=== PATIENT | male | born 1935 | race Hispanic/Latino ===

== ENCOUNTER 2017-01-20 17:35 | Emergency (ER) | payer MEDICARE, BC ==
[2017-01-20 17:50] VITALS: BMI 26.3
[2017-01-20 17:54] VITALS: BP 149/77; PULSE 61; RESP 16; TEMP 98.3; O2SAT 97
--- NOTE | 2017-01-20 18:18 | ED PDOC ---
Arrival/HPI - General Chief Complaint: Trauma Time Seen by Provider: 01/20/17 18:00 Historian: Patient - History of Present Illness Narrative History of Present Illness (Text): 01/20/17 18:05 81yo present with complaint of lower back pain s/p trauma this afternoon. the son who was by the bedside states patient fell backward on 3stairs. Landed on his buttocks and hit his head against a table. Patient states he slipped while walking up the stairs. the son states he witnessed the fall. States pain started when he woke up later. Describes pain is crampy/sharp, worse with movement. Patient denies LOC, focal weakness, urinary/fecal incontinence, nausea , vomiting, any other complaint. Past Medical History - Provider Review Nursing Documentation Reviewed: Yes - Infectious Disease Hx of Infectious Diseases: None - Tetanus Immunization Tetanus Immunization: Unknown - Cardiac Hx Congestive Heart Failure: No Hx Hypertension: Yes Hx Internal Defibrillator: No Hx Mitral Valve Prolapse: No Hx Pacemaker: No Hx Peripheral Edema: No - Pulmonary Hx Asthma: No Hx Bronchitis: No Hx Chronic Obstructive Pulmonary Disease (COPD): No Hx Emphysema: No - Neurological Hx Alzheimer's Disease: Yes HX Cerebrovascular Accident: Yes Hx Dementia: Yes Hx Migraine: No Hx Parkinson's Disease: No Hx Seizures: No Hx Transient Ischemic Attacks (TIA): Yes - Renal Hx Renal Disorder: Yes Hx Dialysis: No Hx Kidney Stones: Yes Hx Neurogenic Bladder: No Hx Pyelonephritis: No Hx Renal Cancer: Yes - Endocrine/Metabolic Hx Hyperthyroidism: No Hx Hypothyroidism: Yes - Hematological/Oncological Hx Anemia: No Hx Cancer: Yes (prostate) Hx Hepatitis A: No Hx Hepatitis B: No Hx Hepatitis C: No - Integumentary Hx Dermatological Disorder: No Hx Basal Cell Carcinoma: No Hx Eczema: No Hx Melanoma: No Hx Psoriasis: No Hx Squamous Cell Carcinoma: No - Musculoskeletal/Rheumatological Hx Arthritis: Yes - Gastrointestinal Hx Gastroesophageal Reflux: Yes - Genitourinary/Gynecological Hx Genitourinary Disorders: No Hx Hematuria: No Hx Incontinence: No Hx Prostate Problems: No Hx Sexually Transmitted Diseases: No - Psychiatric Hx Depression: No Hx Emotional Abuse: No Hx Physical Abuse: No Hx Substance Use: No - Surgical History Hx Cardiac Catheterization: Yes Hx Coronary Stent: No Hx Open Heart Surgery: Yes Hx Orthopedic Surgery: Yes (left knee) - Anesthesia Hx Anesthesia: No Hx Anesthesia Reactions: No Hx Malignant Hyperthermia: No - Suicidal Assessment Feels Threatened In Home Enviroment: No Family/Social History - Physician Review Nursing Documentation Reviewed: Yes Family/Social History: Unknown Family HX Smoking Status: Never Smoked Hx Alcohol Use: No Hx Substance Use: No Hx Substance Use Treatment: No Allergies/Home Meds Allergies/Adverse Reactions: Allergies No Known Allergies Allergy (Verified 01/24/13 08:40) Home Medications: Home Meds Medication Instructions Recorded Confirmed Alprazolam [Xanax] 0.25 mg PO DAILY 01/24/13 01/24/13 Amlodipine Besylate 5 mg PO DAILY 01/24/13 01/24/13 Aspirin [Ecotrin] 325 mg PO DAILY 01/24/13 01/24/13 Atorvastatin Calcium 40 mg PO DAILY 01/24/13 01/24/13 Donepezil Hydrochloride [Aricept] 10 mg PO DAILY 01/24/13 01/24/13 Levothyroxine [Synthroid] 0.075 mg PO DAILY 01/24/13 01/24/13 Meclizine Hydrochloride [Meclizine] 25 mg PO BID 01/24/13 01/24/13 Metoprolol Tartrate 50 mg PO BID 01/24/13 01/24/13 Multivitamin and [id number] 1 tab PO DAILY 01/24/13 01/24/13 [Centrum Silver] Review of Systems - Physician Review All systems were reviewed & negative as marked: Yes - Review of Systems Constitutional: Normal Eyes: Normal ENT: Normal Respiratory: Normal Cardiovascular: Normal Gastrointestinal: Normal Genitourinary Male: Normal Musculoskeletal: Back Pain Skin: Normal Neurological: Normal Endocrine: Normal Hemo/Lymphatic: Normal Psychiatric: Normal Physical Exam Vital Signs Reviewed: Yes Vital Signs Temp Pulse Resp BP Pulse Ox 01/20/17 17:50 98.3 F 61 16 149/77 97 Temperature: Afebrile Blood Pressure: Normal Pulse: Regular Respiratory Rate: Normal Appearance: Positive for: Well-Appearing, Non-Toxic, Comfortable Pain Distress: None Mental Status: Positive for: Alert and Oriented X 3 - Systems Exam Head: Present: Atraumatic, Normocephalic Pupils: Present: PERRL Extroacular Muscles: Present: EOMI Conjunctiva: Present: Normal Mouth: Present: Moist Mucous Membranes Neck: Present: Normal Range of Motion Respiratory/Chest: Present: Clear to Auscultation, Good Air Exchange. No: Respiratory Distress, Accessory Muscle Use Cardiovascular: Present: Regular Rate and Rhythm, Normal S1, S2. No: Murmurs Abdomen: Present: Normal Bowel Sounds. No: Tenderness, Distention, Peritoneal Signs Back: Present: Midline Tenderness, Paraspinal Tenderness (Diffuse lower lumbar tenderness). No: Pain with Leg Raise Upper Extremity: Present: Normal Inspection. No: Cyanosis, Edema Lower Extremity: Present: Normal Inspection. No: Edema Neurological: Present: GCS=15, CN II-XII Intact, Speech Normal, Motor Func Grossly Intact, Normal Sensory Function, Normal 2Pt Descrimination, Other (No focal neurological deficit) Skin: Present: Warm, Dry, Normal Color. No: Rashes Psychiatric: Present: Alert, Oriented x 3, Normal Insight, Normal Concentration Medical Decision Making ED Course and Treatment: 01/20/17 20:38 Pt present in ED for stated history. He was comfortable in ED. AAO x3. Neurologically intact. He was able to machine ironer ED. The son that he usually ambualte with a walker but don't have it with him. Head Ct - No acute finding LS CT _ L1 compression fracture suspected to be acute. Multilevel degenerative changes as above including spinal stenosis at L4-5 and L5-S1. Enlarged appendix with a curvilinear band of calcification in the wall. There are no surrounding inflammatory changes and calcification of the wall with seen to make appendicitis unlikely although it is not entirely excluded. Colonic diverticulosis with no acute diverticulitis.. Kidney cysts. Result was DW with both patient and the family members. Patient states his pain is manageable and prefer to go home. He was given Percocet in ED. Case was JEFERSON Wang who works with Dr. Orozco. She states patient should call the office tomorrow. PT was given percocet rx. Advised to call Dr. Chau tomorrow and referred to ortho. TRT ED for any new or worsening symptoms. - RAD Interpretation Radiology Orders: 01/20/17 18:00 HEAD W/O CONTRAST [CT] Stat LUMBAR SPINE W/O CONTRAST [CT] Stat - Medication Orders Current Medication Orders: Discontinued Medications Oxycodone/Acetaminophen (Percocet 5/325 Mg Tab) 1 tab PO STAT STA Stop: 01/20/17 20:23 Last Admin: 04/20/17 20:31 Dose: 1 TAB Disposition/Present on Arrival - Present on Arrival Any Indicators Present on Arrival: No History of DVT/PE: No History of Uncontrolled Diabetes: No Urinary Catheter: No History of Decub. Ulcer: No History Surgical Site Infection Following: None - Disposition Have Diagnosis and Disposition been Completed?: Yes Diagnosis: Compression fracture Disposition: HOME/ ROUTINE Disposition Time: 20:30 Patient Plan: Discharge Patient Problems: Current Active Problems Problem Status Diagnosed Compression fracture Acute Condition: STABLE Discharge Instructions (ExitCare): Thoracolumbar Fracture (ED) Additional Instructions: Follow up with your Doctor/[place] Return to ED for any new or worsening symptoms Prescriptions: oxyCODONE/Acetaminophen [Percocet 5/325 mg Tab] 1 ea PO Q6 #10 tab Referrals: Samuel Chau MD [Primary Care Provider] - Follow up with primary Jorge Whelan DO [Staff Provider] - Follow up with primary
[2017-01-20] MEDS ORDERED: Oxycodone/Acetaminophen 5/325 mg Tab PO STA (20:22)
--- NOTE | 2017-01-21 07:31 | CT ---
PROCEDURE: CT HEAD WITHOUT CONTRAST. HISTORY: head injury COMPARISON: Noncontrast head CT performed 01/27/13, MRI brain without IV contrast performed 10/21/16 TECHNIQUE: Axial computed tomography images were obtained through the head/brain without intravenous contrast. Radiation dose: Total exam DLP = 774.23 mGy-cm. This CT exam was performed using one or more of the following dose reduction techniques: Automated exposure control, adjustment of the mA and/or kV according to patient size, and/or use of iterative reconstruction technique. FINDINGS: HEMORRHAGE: No intracranial hemorrhage. BRAIN: Diffuse atrophy with prominence of the ventricles and sulci noted. No mass effect or edema. Intracranial atherosclerotic calcifications. Scattered regions of chronic appearing infarcts and lacunes involving the posterior frontal region, bilateral basal ganglia, and left frontal white matter. Scattered periventricular and subcortical white matter hypodensities, which are nonspecific, but often seen with chronic microvascular ischemic disease. Please note that MRI with diffusion imaging is more sensitive in the detection of acute ischemic event. VENTRICLES: No hydrocephalus. CALVARIUM: Unremarkable. PARANASAL SINUSES: Mucosal polyp/ retention cyst within the left maxillary sinus. Mild mucosal thickening of the ethmoid air cells. MASTOID AIR CELLS: Unremarkable as visualized. No inflammatory changes. OTHER FINDINGS: Partial opacification of the right external auditory canal, likely cerumen. IMPRESSION: Scattered regions of chronic appearing infarcts and lacunes as above. Please note that MRI with diffusion imaging is more sensitive in the detection of acute ischemic event. Additional incidental findings as above. Preliminary impression was provided by virtual radiologic.
--- NOTE | 2017-01-21 11:02 | CT ---
PROCEDURE: CT Lumbar Spine without contrast HISTORY: back pain s/p trauma COMPARISON: MRI of the lumbar spine 09/27/2014 TECHNIQUE: Axial computed tomography images were obtained of the lumbar spine without the use of intravenous contrast. Coronal and sagittal reformatted images were created and reviewed. Radiation dose: Total exam DLP = 979 mGy-cm. This CT exam was performed using one or more of the following dose reduction techniques: Automated exposure control, adjustment of the mA and/or kV according to patient size, and/or use of iterative reconstruction technique. FINDINGS: VERTEBRAE: There is a moderate compression fracture of L1. This is unchanged DISCS/SPINAL CANAL/NEURAL FORAMINA: L1-2: Unremarkable. L2-3: There is severe disc degeneration with loss of disc height and disc bulging L3-4: Mild to moderate disc bulge L4-5: There is severe disc degeneration with loss of disc height, vacuum disc and moderate disc bulge. This produces a moderate degree of central canal stenosis. L5-S1: There is severe disc degeneration with loss of disc height, vacuum disc and disc bulge. Osteophyte formation. Facet arthropathy. Severe central stenosis PARASPINAL SOFT TISSUES: Unremarkable. OTHER FINDINGS: None. IMPRESSION: Multilevel disc degeneration with spinal stenosis at L4-5 and L5-S1
== END 2017-01-20 20:40 | disposition home or self-care (01) ==
LOC: ED 17:35
DX: S32.019A Unspecified fracture of first lumbar vertebra, initial encounter for closed fracture (principal); W10.8XXA Fall (on) (from) other stairs and steps, initial encounter; Y92.008 Other place in unspecified non-institutional (private) residence as the place of occurrence of the external cause

== ENCOUNTER 2018-06-12 19:24 | Inpatient (IN) | payer MEDICARE, BC ==
[2018-06-12 20:04] VITALS: BMI 20.8
[2018-06-12 20:14] LABS: HEMOGLOBIN 11.6 g/dL (14.0-18.0); MEAN CELL VOLUME 94.4 fl (80.0-105.0); MEAN CORPUSCULAR HEMOGLOBIN 32.4 pg (25.0-35.0); MEAN CORPUSCULAR HGB CONC 34.3 g/dl (31.0-37.0); MEAN PLATELET VOLUME 9.5 fl (7.0-11.0); RBC 3.58 10^6/uL (3.5-6.1); RED CELL DISTRIBUTION WIDTH 12.6 % (11.5-14.5); WHITE BLOOD COUNT 4.8 10^3/ul (4.5-11.0)
[2018-06-12 20:21] LABS: ALB/GLOB RATIO 1.6 (1.1-1.8); ALBUMIN 4.5 g/dL (3.0-4.8); ALT/SGPT 49 U/L (7-56); AST/SGOT 47 U/L (17-59); BLOOD UREA NITROGEN 37 mg/dL (7-21); CALCIUM 9.8 mg/dL (8.4-10.5); GFR NON-AFRICAN AMERICAN 44
[2018-06-12 20:22] LABS: INR 0.98; PARTIAL THROMBOPLASTIN TIME 20.9 Seconds (25.1-36.5); PROTHROMBIN TIME 11.2 SECONDS (9.4-12.5)
[2018-06-12 20:32] LABS: TROPONIN I < 0.01 ng/mL
--- NOTE | 2018-06-12 20:49 | ED PDOC ---
Arrival/HPI - General Chief Complaint: Trauma Time Seen by Provider: 06/12/18 19:34 Historian: Patient, Family (son) - History of Present Illness Narrative History of Present Illness (Text): 06/12/18 19:42 A 83 year old male, whose past medical history includes dementia, TIA, CVA, who is accompanied by his son, presents to the emergency department complaining of periods of increased confusion. Per son, patient today seemed to be also weak at times while using his walker. At some point during today, patient fell onto walker, however did not land on the ground. Patient had to be assisted afterwards according to son. Patient denies chest pain, shortness of breath, fever, chills, headache, abdominal pain, nausea, vomiting, diarrhea, or any other complaints at this time. PMD: Dr. Chau Past Medical History - Provider Review Nursing Documentation Reviewed: Yes - Infectious Disease Hx of Infectious Diseases: None - Tetanus Immunization Tetanus Immunization: Unknown - Cardiac Hx Congestive Heart Failure: No Hx Hypertension: Yes Hx Internal Defibrillator: No Hx Mitral Valve Prolapse: No Hx Pacemaker: No Hx Peripheral Edema: No - Pulmonary Hx Asthma: No Hx Bronchitis: No Hx Chronic Obstructive Pulmonary Disease (COPD): No Hx Emphysema: No - Neurological Hx Alzheimer's Disease: Yes HX Cerebrovascular Accident: Yes Hx Dementia: Yes Hx Migraine: No Hx Parkinson's Disease: No Hx Seizures: No Hx Transient Ischemic Attacks (TIA): Yes - Renal Hx Renal Disorder: Yes Hx Dialysis: No Hx Kidney Stones: Yes Hx Neurogenic Bladder: No Hx Pyelonephritis: No Hx Renal Cancer: Yes - Endocrine/Metabolic Hx Hyperthyroidism: No Hx Hypothyroidism: Yes - Hematological/Oncological Hx Anemia: No Hx Cancer: Yes (prostate) Hx Hepatitis A: No Hx Hepatitis B: No Hx Hepatitis C: No - Integumentary Hx Dermatological Disorder: No Hx Basal Cell Carcinoma: No Hx Eczema: No Hx Melanoma: No Hx Psoriasis: No Hx Squamous Cell Carcinoma: No - Musculoskeletal/Rheumatological Hx Arthritis: Yes - Gastrointestinal Hx Gastroesophageal Reflux: Yes - Genitourinary/Gynecological Hx Genitourinary Disorders: No Hx Hematuria: No Hx Incontinence: No Hx Prostate Problems: No Hx Sexually Transmitted Diseases: No - Psychiatric Hx Depression: No Hx Emotional Abuse: No Hx Physical Abuse: No Hx Substance Use: No - Surgical History Hx Cardiac Catheterization: Yes Hx Coronary Stent: No Hx Open Heart Surgery: Yes Hx Orthopedic Surgery: Yes (left knee) - Anesthesia Hx Anesthesia: No Hx Anesthesia Reactions: No Hx Malignant Hyperthermia: No - Suicidal Assessment Feels Threatened In Home Enviroment: No Family/Social History - Physician Review Nursing Documentation Reviewed: Yes Family/Social History: No Known Family HX Smoking Status: Never Smoked Hx Alcohol Use: No Hx Substance Use: No Hx Substance Use Treatment: No Allergies/Home Meds Allergies/Adverse Reactions: Allergies No Known Allergies Allergy (Verified 01/24/13 08:40) Home Medications: Home Meds Medication Instructions Recorded Confirmed Amlodipine Besylate 10 mg PO DAILY 01/24/13 06/12/18 Atorvastatin Calcium 40 mg PO DAILY 01/24/13 06/12/18 Levothyroxine [Synthroid] 0.075 mg PO DAILY 01/24/13 06/12/18 Metoprolol Tartrate 50 mg PO BID 01/24/13 06/12/18 Multivitamin and [id number] 1 tab PO DAILY 01/24/13 06/12/18 [Centrum Silver] Clopidogrel Bisulfate [Clopidogrel 75 mg PO DAILY 06/12/18 06/12/18 Bisulfate] Escitalopram [Lexapro] 5 mg PO DAILY 06/12/18 06/12/18 Magnesium Oxide [Pharmassure 500 mg PO DAILY 06/12/18 06/12/18 Magnesium] Pantoprazole Sodium [Protonix] 40 mg PO DAILY 06/12/18 06/12/18 Tamsulosin HCl [Flomax] 0.4 mg PO HS 06/12/18 06/12/18 Review of Systems - Physician Review All systems were reviewed & negative as marked: Yes - Review of Systems Constitutional: absent: Fevers, Night Sweats Respiratory: absent: SOB Cardiovascular: absent: Chest Pain Gastrointestinal: absent: Abdominal Pain, Diarrhea, Nausea, Vomiting Neurological: absent: Headache Psychiatric: Other (periods of increased confusion.) Physical Exam Vital Signs Reviewed: Yes Vital Signs Pulse Resp BP Pulse Ox 06/12/18 23:21 52 L 18 124/63 100 06/12/18 20:08 50 L 18 128/64 98 06/12/18 20:04 50 L 18 128/64 99 Blood Pressure: Normal Pulse: Bradycardic Respiratory Rate: Normal Appearance: Positive for: Well-Appearing, Non-Toxic, Comfortable Pain Distress: None Mental Status: No: Alert and Oriented X 3 (alert and oriented x 2 (person and place only)) - Systems Exam Head: Present: Atraumatic, Normocephalic Pupils: Present: PERRL Extroacular Muscles: Present: EOMI Conjunctiva: Present: Normal Ears: Present: NORMAL TM (bilaterally intact) Mouth: Present: Moist Mucous Membranes Neck: Present: Normal Range of Motion (neck is supple). No: Other (no dorsal tenderness) Respiratory/Chest: Present: Clear to Auscultation, Good Air Exchange. No: Respiratory Distress, Accessory Muscle Use Cardiovascular: Present: Bradycardic Abdomen: Present: Normal Bowel Sounds. No: Tenderness, Distention, Peritoneal Signs Back: Present: Normal Inspection Upper Extremity: Present: Normal Inspection. No: Cyanosis, Edema Lower Extremity: Present: Normal Inspection. No: Edema Neurological: Present: GCS=15, CN II-XII Intact, Speech Normal. No: Other (no focal/sensory/motor deficits.) Skin: Present: Warm, Dry, Normal Color. No: Rashes Psychiatric: Present: Alert, Oriented x 3, Normal Insight, Normal Concentration Medical Decision Making ED Course and Treatment: 06/12/18 19:46 Impression: 83 year old male with periods of increased confusion. Plan: -- EKG -- Head CT -- Chest X-ray -- Labs -- Reassess and disposition Progress Notes: EKG: Ordered, reviewed, and independently interpreted the EKG. Rate : 53 BPM Rhythm : Bradycardia. Interpretation : No ST-segment elevations or depressions, no T-wave inversions, normal intervals. Comparison : No previous EKG for comparison. 06/12/18 22:55 Reviewed radiology, Chest X-ray reviewed shows no acute processes. CT Head shows: Brain: Scattered low density areas in the periventricular white matter and basal ganglia probably reflect chronic small vessel ischemic changes. Vascular calcifications are present. There is no intracranial hemorrhage or mass. No abnormal extra-axial or parenchymal fluid collections. Posterior fossa is unremarkable. Ventricles: The ventricles and basilar cisterns are prominant likely related to chronic volume loss. Bones/joints: Normal. No acute fracture. Sinuses: Mucous retention cyst present in the left maxillary sinus.There is cerebral and cerebellar cortical volume loss compatible with the patient's age. Mild mucosal thickening in the ethmoid sinuses present. Mastoid air cells: Normal as visualized. No mastoid effusion. Soft tissues: Normal. IMPRESSION: There are low-attenuation areas in the periventricular white matter and basal ganglia, probably reflecting chronic ischemic changes. However, if there is clinical concern for an acute infarction, followup MRI could be useful. Dictated and Authenticated by: Unique Smith MD 06/12/2018 10:53 PM Eastern Time ([place] & [place]) 06/12/18 23:51 Case discussed with front office medical assistant electronics engineering technologist, who is aware and agrees with plan. 06/12/18 23:[address] Dowd, who is aware and agrees with plan. Accepts pt in to hospitalist service. Pt will go to Telemetry observation for AMS and near- syncope. - Lab Interpretations Lab Results: 06/12/18 20:03 06/12/18 20:03 Lab Results 06/12/18 20:03: WBC 4.8, RBC 3.58, Hgb 11.6 L, Hct 33.8 L, MCV 94.4, MCH 32.4, MCHC 34.3, RDW 12.6, Plt Count 117 L, MPV 9.5 06/12/18 20:03: Sodium 140, Potassium 4.6, Chloride 103, Carbon Dioxide 27, Anion Gap 16, BUN 37 H, Creatinine 1.5, Est GFR ( Amer) 54, Est GFR (Non- Af Amer) 44, Random Glucose 134 H, Calcium 9.8, Total Bilirubin 0.9, AST 47, ALT 49, Alkaline Phosphatase 79, Lactate Dehydrogenase 535, Total Creatine Kinase 49, Troponin I < 0.01, Total Protein 7.2, Albumin 4.5, Globulin 2.7, Albumin/Globulin Ratio 1.6 06/12/18 20:03: PT 11.2, INR 0.98, APTT 20.9 L - RAD Interpretation Radiology Orders: 06/12/18 19:46 HEAD W/O CONTRAST [CT] Stat CHEST PORTABLE [RAD] Stat - Scribe Statement The provider has reviewed the documentation as recorded by the Cornell Huff Provider Scribe Provider Scribe Attestation: All medical record entries made by the Scribe were at my direction and personally dictated by me. I have reviewed the chart and agree that the record accurately reflects my personal performance of the history, physical exam, medical decision making, and the department course for this patient. I have also personally directed, reviewed, and agree with the discharge instructions and disposition. Disposition/Present on Arrival - Present on Arrival Any Indicators Present on Arrival: No History of DVT/PE: No History of Uncontrolled Diabetes: No Urinary Catheter: No History of Decub. Ulcer: No History Surgical Site Infection Following: None - Disposition Have Diagnosis and Disposition been Completed?: Yes Diagnosis: Altered mental status, Near syncope Disposition: HOSPITALIZED Disposition Time: 00:04 Condition: STABLE Referrals: Samuel Chau MD [Primary Care Provider] - Follow up with primary Forms: [email or web address] (L[place]anese)
--- NOTE | 2018-06-13 02:36 | CP.PCM.HP ---
<Gavin Gold - Last Filed: 06/13/18 05:40> History of Present Illness - History of Present Illness History of Present Illness: Gavin Gold DO PGY-1, H&P for Hospitalist This is an 83 year old male with PMH of alzheimer's dementia, TIA, CVA who presents to the ED with complaints of period of increased confusion since the night of 06/12/18, and fall. Pt is a poor historian, and history is mostly obtained from pt's nephew who is at bedside. Nephew reports that the patient has had worsening dementia for the past few months, but states that he looked disoriented today and had trouble taking his medications today. Pt was pacing around the house, and eventually took his medication (nightly dose of Metoprolol 50 mg PO), and subsequently fell forward while using his walker but did not hit the ground. As per pt and nephew, pt did not lose consciousnes. Nephew states that pt is in charge of his medications and frequently takes them incorrectly. Denies fever, chills, cough abdominal pain, n/v/d. In the ED, Head CT was done which showed chronic ischemic changes. EKG in the ED shows junctional rhythm at 53, no sttw changes, as read by me. Pt endorses waking up to urinate 3-4 times per night, denies dysuria. Pt seen and examined at bedside. Pt is pleasantly demented, and is only oriented to self. Has no complaints at this time PMD: [place] Cardio: Krupa POA: pt's neice PMHx: Nephew only endorses dementia, cva, tia. Records reviewed: hypertension, hypothyroidism. Exam shows sterniotomy scars and CXR shows sterniotomy wires in place. PSHx: denies Meds: magnesium oxide 500 mg PO QD, protonix 40 mg PO QD, plavix 75 mg PO QD, flomax 04 mg PO HS, Lexapro 5 mg PO QD, multivitamin, Metoprolol 50 mg PO BID, Atorvastatin 40 mg PO QD, Amlodopine 10 mg PO QD, Levothyroxine 75 mcg PO QD Allx:NKDA Social history: denies smoking, alcohol use. Lives with brother in law and nephew Present on Admission - Present on Admission Any Indicators Present on Admission: No Review of Systems - Review of Systems All systems: reviewed and no additional remarkable complaints except (as per HPI ) Past Patient History - Infectious Disease Hx of Infectious Diseases: None - Tetanus Immunizations Tetanus Immunization: Unknown - Past Social History Smoking Status: Never Smoked - CARDIAC Hx Congestive Heart Failure: No Hx Hypertension: Yes Hx Internal Defibrillator: No Hx Mitral Valve Prolapse: No Hx Pacemaker: No Hx Peripheral Edema: No - PULMONARY Hx Asthma: No Hx Bronchitis: No Hx Chronic Obstructive Pulmonary Disease (COPD): No Hx Emphysema: No - NEUROLOGICAL Hx Alzheimer's Disease: Yes HX Cerebrovascular Accident: Yes Hx Dementia: Yes Hx Migraine: No Hx Parkinson's Disease: No Hx Seizures: No Hx Transient Ischemic Attacks (TIA): Yes - RENAL Hx Chronic Kidney Disease: Yes Hx Dialysis: No Hx Kidney Stones: Yes Hx Neurogenic Bladder: No Hx Pyelonephritis: No Hx Renal (Kidney) Cancer: Yes - ENDOCRINE/METABOLIC Hx Hyperthyroidism: No Hx Hypothyroidism: Yes - HEMATOLOGICAL/ONCOLOGICAL Hx Anemia: No Hx Cancer: Yes (prostate) Hx Hepatitis A: No Hx Hepatitis B: No Hx Hepatitis C: No - INTEGUMENTARY Hx Dermatological Problems: No Hx Basil Cell: No Hx Eczema: No Hx Melanoma: No Hx Psoriasis: No Hx Squamous Cell: No - MUSCULOSKELETAL/RHEUMATOLOGICAL Hx Arthritis: Yes - GASTROINTESTINAL Hx Gastroesophageal Reflux: Yes - GENITOURINARY/GYNECOLOGICAL Hx Genitourinary Disorders: No Hx Hematuria: No Hx Incontinence: No Hx Prostate Problems: No Hx Sexually Transmitted Disorders: No - PSYCHIATRIC Hx Depression: No Hx Emotional Abuse: No Hx Physical Abuse: No Hx Substance Use: No - SURGICAL HISTORY Hx Cardiac Catheterization: Yes Hx Coronary Stent: No Hx Open Heart Surgery: Yes Hx Orthopedic Surgery: Yes (left knee) - ANESTHESIA Hx Anesthesia: No Hx Anesthesia Reactions: No Hx Malignant Hyperthermia: No Meds Allergies/Adverse Reactions: Allergies Allergy/AdvReac Type Severity Reaction Status Date / Time No Known Allergies Allergy Verified 01/24/13 08:40 Physical Exam - Constitutional Appears: No Acute Distress, Confused (pleasantly demented) - Eye Exam Eye Exam: EOMI Pupil Exam: PERRL - ENT Exam ENT Exam: Mucous Membranes Moist - Neck Exam Neck exam: Positive for: Normal Inspection - Respiratory Exam Respiratory Exam: Clear to Auscultation Bilateral, NORMAL BREATHING PATTERN - Cardiovascular Exam Cardiovascular Exam: REGULAR RHYTHM, +S1, +S2 Additional comments: (-) carotid bruit, (+) large midline vertical sterniotomy scar - GI/Abdominal Exam GI & Abdominal Exam: Normal Bowel Sounds, Soft. absent: Tenderness - Extremities Exam Extremities exam: Positive for: normal inspection, pedal pulses present. Negative for: pedal edema - Back Exam Back exam: NORMAL INSPECTION - Neurological Exam Neurological exam: Alert (only oriented to self), CN II-XII Intact Additional comments: (+) 5/5 strength in bilateral upper and lower extremities - Psychiatric Exam Psychiatric exam: Normal Affect - Skin Skin Exam: Normal Color, Warm Results - Vital Signs Recent Vital Signs: Last Vital Signs Temp Pulse 52 L 06/12/18 23:21 Resp 18 06/12/18 23:21 BP 124/63 06/12/18 23:21 Pulse Ox 100 06/12/18 23:21 - Labs Result Diagrams: 06/13/18 05:15 06/12/18 20:03 Assessment & Plan - Assessment and Plan (Free Text) Assessment: This is an 83 year old male with PMH of alzheimer's dementia, TIA, CVA who presents to the ED with complaints of period of increased confusion since the night of 06/12/18, and fall. Pt is a poor historian, and history is mostly obtained from pt's nephew who is at bedside. Nephew reports that the patient has had worsening dementia for the past few months, but states that he looked disoriented today and had trouble taking his medications today. Pt was pacing around the house, and eventually took his medication (nightly dose of Metoprolol 50 mg PO), and subsequently fell forward while using his walker. Pt did not lose consciousnes or hit his head. In the ED, Head CT was done which showed chronic ischemic changes. EKG in the ED shows junctional rhythm at 53, no sttw changes, as read by me. Pt will be admitted to telemetry for observation. Plan: 1. AMS, secondary to polypharmacy and incorrect medication due to advancing alzheimer's dementia - currently no focal deficits - Head CT: There are low-attenuation areas in the periventricular white matter and basal ganglia, probably reflecting chronic ischemic changes. However, if there is clinical concern for an acute infarction, followup MRI could be useful. - EKG shows junctional rhythm at 52, no STTW changes; as read by me - hold metoprolol - high fall risk, fall precautions - f/u UA and urine culture; no antibiotics at this time due to no signs of clear infection or SIRS criteria, no fever or tachycardia - cardiology consulted recs appreciated - clinical social work aide consulted 2. History of CVA - holding plavix due to high fall risk - contact pharmacy to confirm medication and restart appropriately - continue home atorvastatin 3. hypertension - BP has been 120s/60s in the ED - continue home amlodipine 4. Hyperlipidemia - continue home lipitor - f/u lipid panel 5. hypothyroidism - continue home synthroid - TSH is 1.04, f/u T4 6. depression - continue home escitalopram 7. PPX/Diet - Protonix 40 mg PO QD, SCDs - HHD Case discussed and reviewed with attending physician, Dr. Dowd <Craig Dowd - Last Filed: 06/13/18 06:47> Results - Vital Signs Recent Vital Signs: Last Vital Signs Temp Pulse 58 L 06/13/18 06:32 Resp 18 06/13/18 06:32 BP 136/65 06/13/18 06:32 Pulse Ox 100 06/13/18 06:32 - Labs Result Diagrams: 06/13/18 05:15 06/12/18 20:03 Labs: Laboratory Results - last 24 hr 06/13/18 06/13/18 02:05 05:15 WBC 6.5 D RBC 3.69 Hgb 11.9 L Hct 34.4 L MCV 93.2 MCH 32.2 MCHC 34.6 RDW 12.6 Plt Count 128 MPV 9.8 Urine Color Yellow Urine Appearance Clear Urine pH 8.0 Ur Specific Carney 1.015 Urine Protein Trace H Urine Glucose (UA) Negative Urine Ketones 15 H Urine Blood Negative Urine Nitrate Negative Urine Bilirubin Negative Urine Urobilinogen 0.2 Ur Leukocyte Esterase Negative Urine RBC 0 - 2 Urine WBC 0 - 2 Ur Epithelial Cells 0 - 2 Hyaline Casts 0 - 2 Attending/Attestation - Attestation I have personally seen and examined this patient.: Yes I have fully participated in the care of the patient.: Yes I have reviewed all pertinent clinical information: Yes Notes (Text): Pt seen and examined independently. Junctional arrhythmia, ? secondary to medication side effect. AMS most likely due to worsening dementia, but will need to r/o infectious etiology. send UA. Will hold BB for now, get cardio consult. SW consult. 06/13/18 06:41
[2018-06-13 03:39] LABS: URINE BILIRUBIN NEGATIVE (NEGATIVE); URINE BLOOD NEGATIVE (NEGATIVE); URINE GLUCOSE (UA) NEGATIVE (NEGATIVE); URINE LEUKOCYTE ESTERASE NEGATIVE Leu/uL (NEGATIVE); URINE PROTEIN TRACE mg/dL (<30 mg/dL); URINE UROBILINOGEN 0.2 E.U./dL (<1 E.U./dL)
[2018-06-13 03:40] LABS: URINE APPEARANCE CLEAR (CLEAR); URINE COLOR YELLOW (YELLOW)
[2018-06-13 03:45] LABS: URINE EPITHELIAL CELLS 0 - 2 /hpf (0-5); URINE HYALINE CAST 0 - 2 /hpf; URINE RBC 0 - 2 /hpf (0-2); URINE WBC 0 - 2 /hpf (0-6)
[2018-06-13 05:37] LABS: HEMOGLOBIN 11.9 g/dL (14.0-18.0); MEAN CELL VOLUME 93.2 fl (80.0-105.0); MEAN CORPUSCULAR HEMOGLOBIN 32.2 pg (25.0-35.0); MEAN CORPUSCULAR HGB CONC 34.6 g/dl (31.0-37.0); MEAN PLATELET VOLUME 9.8 fl (7.0-11.0); RBC 3.69 10^6/uL (3.5-6.1); RED CELL DISTRIBUTION WIDTH 12.6 % (11.5-14.5); WHITE BLOOD COUNT 6.5 10^3/ul (4.5-11.0)
[2018-06-13 07:10] LABS: CALCIUM 10.2 mg/dL (8.4-10.5)
[2018-06-13 07:39] LABS: HDL CHOLESTEROL 47 mg/dL (29-60)
[2018-06-13 07:49] LABS: LDL CHOLESTEROL 53 mg/dL (0-129)
--- NOTE | 2018-06-13 08:22 | CT ---
Date of service: 06/12/2018 PROCEDURE: CT HEAD WITHOUT CONTRAST. HISTORY: confused/weak COMPARISON: None available. TECHNIQUE: Axial computed tomography images were obtained through the head/brain without intravenous contrast. Radiation dose: Total exam DLP = 847 mGy-cm. This CT exam was performed using one or more of the following dose reduction techniques: Automated exposure control, adjustment of the mA and/or kV according to patient size, and/or use of iterative reconstruction technique. FINDINGS: HEMORRHAGE: No intracranial hemorrhage. BRAIN: No mass effect or edema. Severe chronic microvascular changes are seen in the periventricular white matter and basal ganglia. There is moderate atrophy VENTRICLES: Unremarkable. No hydrocephalus. CALVARIUM: Unremarkable. PARANASAL SINUSES: Unremarkable as visualized. No significant inflammatory changes. MASTOID AIR CELLS: Unremarkable as visualized. No inflammatory changes. OTHER FINDINGS: The report concurs with the preliminary [facility] report IMPRESSION: No acute findings
--- NOTE | 2018-06-13 08:34 | RAD ---
Date of service: 06/12/2018 HISTORY: confused COMPARISON: 01/24/2013 FINDINGS: LUNGS: No active pulmonary disease. PLEURA: No significant pleural effusion identified, no pneumothorax apparent. CARDIOVASCULAR: Mild cardiomegaly OSSEOUS STRUCTURES: Sternal wires VISUALIZED UPPER ABDOMEN: Normal. OTHER FINDINGS: None. IMPRESSION: No active disease.
--- NOTE | 2018-06-13 10:36 | CARD ---
APPROVED REPORT Date of service: 06/12/2018 EKG Measurement Heart [id number] <Conclusion> Junctional rhythm ST & T wave abnormality, consider anterior ischemia Prolonged QT Abnormal ECG
[2018-06-13] MEDS: Pantoprazole 40 mg EC Tab PO SCH (11:19)
[2018-06-13] MEDS: Levothyroxine 75 MCG TAB PO SCH (11:28)
[2018-06-13] MEDS ORDERED: Pneumococcal 23-Valent Vaccine IM ONE (14:38)
--- NOTE | 2018-06-14 01:02 | CON ---
DATE: 06/13/2018 REQUESTING PHYSICIAN: Dr. James. REASON FOR CONSULTATION: Possible syncope and known aortic valve disease. HISTORY: This is an 83-year-old man, well known to me from past evaluations, who has a history of aortic stenosis and coronary artery disease for which he underwent aortic valve replacement and bypass surgery several years ago. This was complicated by a postoperative stroke. He has been lost to follow up, but has apparently developed a progressive dementia and is cared for by his family at home. He apparently became increasingly confused and fell at home. According to the chart, he did not lose consciousness. In the emergency room, he was noted be in junctional rhythm with no acute ST-T changes. He is seen lying on a stretcher in the ER. He is confused, answers some questions appropriately, but does babble and has incoherent speech at times. PAST MEDICAL HISTORY: His past history is notable for the problems mentioned above. He does have a history of prior hypothyroidism as well as hypertension. MEDICATIONS AT HOME: Included Plavix, Flomax, Lexapro, metoprolol 50 mg b.i.d., atorvastatin 40 mg daily, amlodipine 10 mg daily, levothyroxine 75 mcg daily and magnesium supplements. ALLERGIES: NONE. SOCIAL HISTORY: He does not smoke or drink. He lives with his nephew and a [id number]. FAMILY HISTORY: Unable to be provided. REVIEW OF SYSTEMS: Unobtainable given his level of dementia. PHYSICAL EXAMINATION: GENERAL: He is a elderly man, who appears comfortable at rest. VITAL SIGNS: Blood pressure is 128/64 with a pulse of 50, respirations are 14. He is afebrile. HEENT: No JVD. NECK: Supple. CHEST: Few scattered rhonchi heard. HEART: PMI displaced laterally with systolic murmur at the left sternal border. ABDOMEN: Soft, nontender and normoactive bowel sounds. EXTREMITIES: Trace ankle edema. SKIN: Warm and dry. PSYCHIATRIC: Somewhat flat affect, but occasionally agitated. NEUROLOGIC: Mild left-sided weakness noted. DIAGNOSTIC DATA: Electrocardiogram reveals junctional rhythm with nonspecific ST-T abnormalities. Chest x-ray reveals borderline cardiac silhouette enlargement with post sternotomy changes and clear lung draper. White count is 4.8, hemoglobin and hematocrit are 11.6 and 33.8 with platelet count 117,000. PT/PTT normal. Potassium 4.6, BUN and creatinine 37 and 1.5. Troponin negative. Cholesterol 138, triglycerides 128, HDL 47, LDL 53, TSH 1.04. IMPRESSION: 1. Recent fall, details unclear. Uncertain if this is related to his relative bradycardia. 2. Junctional rhythm, likely exacerbated by current dose of beta-anju. 3. Known coronary artery disease, status post prior bypass surgery. 4. Aortic stenosis, status post aortic valve replacement. 5. Moderately advanced dementia. 6. Rest of problems as noted. RECOMMENDATIONS: His beta-anju therapy will be held for now. Admission to a monitored bed is advised. He is hemodynamically stable. No further intervention appears necessary. An echocardiogram will be obtained to assess his current functional status of his aortic bioprosthesis. Conservative care as appropriate. We will be happy to follow and make further recommendations as appropriate. Donal Harvey MD
--- NOTE | 2018-06-14 05:22 | CP.PCM.PN ---
<Florin Fine - Last Filed: 06/14/18 19:47> Subjective - Date & Time of Evaluation Date of Evaluation: 06/14/18 Time of Evaluation: 05:20 - Subjective Subjective: Pt seen and examined this morning. Pt still confused but able to follow simple instructions. Denies chest pain, SOB or weakness. Objective - Vital Signs/Intake and Output Vital Signs (last 24 hours): Temp Pulse Resp BP Pulse Ox 98.1 F 58 L 20 95/53 L 100 06/14/18 00:01 06/14/18 02:00 06/14/18 00:01 06/14/18 00:01 06/14/18 00:01 Intake and Output: 06/13/18 06/14/18 18:59 06:59 Intake Total 360 Output Total 0 Balance 360 - Medications Medications: Current Medications Amlodipine Besylate (Norvasc) 10 mg PO DAILY [facility] Last Admin: 06/13/18 11:27 Dose: 10 mg Atorvastatin Calcium (Lipitor) 40 mg PO DIN [facility] Last Admin: 06/13/18 17:11 Dose: 40 mg Clopidogrel Bisulfate (Plavix) 75 mg PO DAILY [facility] Last Admin: 06/13/18 11:18 Dose: 75 mg Escitalopram Oxalate (Lexapro) 5 mg PO DAILY [facility] Last Admin: 06/13/18 11:27 Dose: 5 mg Levothyroxine Sodium (Synthroid) 75 mcg PO DAILY [facility] Last Admin: 06/13/18 11:28 Dose: 75 mcg Magnesium Oxide (Mag-Ox) 400 mg PO DAILY [facility] Memantine (Namenda) 10 mg PO DAILY [facility] Pantoprazole Sodium (Protonix Ec Tab) 40 mg PO DAILY [facility] Last Admin: 06/13/18 11:19 Dose: 40 mg Tamsulosin HCl (Flomax) 0.4 mg PO HS [facility] Last Admin: 06/13/18 22:01 Dose: 0.4 mg - Labs Labs: 06/13/18 05:15 06/13/18 05:15 PT 11.2 SECONDS (9.4-12.5) 06/12/18 20:03 INR 0.98 06/12/18 20:03 APTT 20.9 Seconds (25.1-36.5) L 06/12/18 20:03 - Constitutional Appears: No Acute Distress - Head Exam Head Exam: ATRAUMATIC - ENT Exam ENT Exam: Mucous Membranes Moist - Respiratory Exam Respiratory Exam: Clear to Ausculation Bilateral, NORMAL BREATHING PATTERN. absent: Accessory Muscle Use - Cardiovascular Exam Cardiovascular Exam: RRR, +S1, +S2 - GI/Abdominal Exam GI & Abdominal Exam: Normal Bowel Sounds. absent: Distended - Extremities Exam Extremities Exam: Full ROM - Neurological Exam Neurological Exam: Awake - Skin Skin Exam: Dry, Normal Color, Warm Assessment and Plan - Assessment and Plan (Free Text) Assessment: Pt is an 83 year old male with PMH of alzheimer's dementia, TIA, CVA who presents to the ED with complaints of period of increased confusion and fall. Plan: AMS - Head CT: no acute findings - ECHO: 52%, normal chamber size, overall LV systolic function, normally functioning aortic bioprosthesis - hold metoprolol, and norvasc - high fall risk, fall precautions - UA trace protein, Ketones 15 - urine cultures: no growth - cardio recommends conservative management - neuro: start aricept, no further neurological intervention at this time - social worker health services consulted History of CVA - continue plavix - continue home atorvastatin Orthostatic Hypotension - Layin/64, HR 73 - Sittin/59, HR 114 - Standin/40, HR not obtained due to lightheadedness - bolus 250 ml/hr NS - continue to monitor Alzheimers - continue memantine 10mg PO daily HLD - lipitor Hypothyroidism - synthroid HTN - holding amlodipine, metoprolol at this time Depression - escitalopram Ppx - Protonix Pt seen, examined, assessment, plan discussed with Dr James. Florin Fine PGY1 <Kareem James - Last Filed: 06/15/18 06:49> Objective - Vital Signs/Intake and Output Vital Signs (last 24 hours): Temp Pulse Resp BP Pulse Ox 98.5 F 56 L 19 116/65 97 06/15/18 00:01 06/15/18 06:00 06/15/18 00:01 06/15/18 00:01 06/15/18 00:01 Intake and Output: 06/14/18 06/15/18 18:59 06:59 Intake Total 720 240 Output Total 650 450 Balance 70 -210 - Medications Medications: Current Medications Amlodipine Besylate (Norvasc) 10 mg PO DAILY [facility] Last Admin: 06/13/18 11:27 Dose: 10 mg Atorvastatin Calcium (Lipitor) 40 mg PO DIN [facility] Last Admin: 06/14/18 17:43 Dose: 40 mg Clopidogrel Bisulfate (Plavix) 75 mg PO DAILY [facility] Last Admin: 06/14/18 09:36 Dose: 75 mg Escitalopram Oxalate (Lexapro) 5 mg PO DAILY [facility] Last Admin: 06/14/18 09:36 Dose: 5 mg Levothyroxine Sodium (Synthroid) 75 mcg PO DAILY [facility] Last Admin: 06/14/18 09:36 Dose: 75 mcg Magnesium Oxide (Mag-Ox) 400 mg PO DAILY [facility] Last Admin: 06/14/18 09:36 Dose: 400 mg Memantine (Namenda) 10 mg PO DAILY [facility] Last Admin: 06/14/18 09:36 Dose: 10 mg Pantoprazole Sodium (Protonix Ec Tab) 40 mg PO DAILY [facility] Last Admin: 06/14/18 09:36 Dose: 40 mg Tamsulosin HCl (Flomax) 0.4 mg PO HS [facility] Last Admin: 06/15/18 00:06 Dose: 0.4 mg - Labs Labs: PT 11.2 SECONDS (9.4-12.5) 06/12/18 20:03 INR 0.98 06/12/18 20:03 APTT 20.9 Seconds (25.1-36.5) L 06/12/18 20:03 Attending/Attestation - Attestation I have personally seen and examined this patient.: Yes I have fully participated in the care of the patient.: Yes I have reviewed all pertinent clinical information, including history, physical exam and plan: Yes Notes (Text): 06/14/18 83 year old male with past medical history of dementia, TIA/CVA, depression, and hypothyroidism who presented s/p fall at home and increased confusion per family. He was found to have low normal blood pressure, bradycardia and +orthostatics. Metoprolol and norvasc are on hold. Fluid bolus given. Cardiology evaluation was appreciated; recommended conservative management. Neurology evaluation was appreciated; recommended aricept. PT evaluation was appreciated; recommended [facility]. Will discuss with family service caseworker. Kareem James MD Hospitalist.
[2018-06-14 06:21] LABS: HEMOGLOBIN 10.9 g/dL (14.0-18.0); MEAN CORPUSCULAR HEMOGLOBIN 32.4 pg (25.0-35.0); MEAN CORPUSCULAR HGB CONC 34.5 g/dl (31.0-37.0); MEAN PLATELET VOLUME 9.9 fl (7.0-11.0); RBC 3.36 10^6/uL (3.5-6.1); WHITE BLOOD COUNT 4.7 10^3/ul (4.5-11.0)
[2018-06-14 06:52] LABS: CALCIUM 8.9 mg/dL (8.4-10.5)
--- NOTE | 2018-06-14 07:21 | CARD ---
APPROVED REPORT Date of service: 06/13/2018 EXAM: Two-dimensional and M-mode echocardiogram with Doppler and color Doppler. INDICATION Syncope 2D DIMENSIONS Left Atrium (2D)3.8 (1.6-4.0cm)IVSd0.9 (0.7-1.1cm) LVDd3.2 (3.9-5.9cm)PWd1.5 (0.7-1.1cm) LVDs2.4 (2.5-4.0cm)FS (%) 25.8 % LVEF (%)52.1 (>50%) M-Mode DIMENSIONS Aortic Root2.20 (2.2-3.7cm) Aortic Valve AoV Peak Aoofbynb028.0cm/Bhavesh Peak GR.21mmHg Mitral Valve MV E Zwghwcpl77.0cm/sMV A Ocrwbkde285.0cm/sE/A ratio0.6 TDI E/Lateral E'0.0E/Medial E'0.0 Tricuspid Valve TR Peak [id number]/sRAP [id number] Peak Gr.4mmHg [id number] LEFT VENTRICLE The left ventricle is normal size. There is mild posterior wall hypertrophy. The left ventricular function is normal. The left ventricular ejection fraction is within the normal range. There is severe hypokinesis of the anteroseptal wall. RIGHT VENTRICLE The right ventricle is normal size. The right ventricular systolic function is normal. ATRIA The left atrium size is normal. The right atrium size is normal. The interatrial septum is intact with no evidence for an atrial septal defect. AORTIC VALVE Normally functioning aortic bioprosthesis present. Mild pannus formation noted. There are normal prosthetic aortic valve gradients. MITRAL VALVE The mitral valve is normal in structure. There is no mitral valve regurgitation noted. TRICUSPID VALVE The tricuspid valve is normal in structure. There is no tricuspid valve regurgitation noted. PULMONIC VALVE The pulmonary valve is normal in structure. GREAT VESSELS The aortic root is normal in size. The IVC is normal in size and collapses >50% with inspiration. PERICARDIAL EFFUSION There is no pleural effusion. There is no pericardial effusion. <Conclusion> Normal chamber size. Normal overall LV systolic function despite anteroseptal hypokinesis. Normally functioning aortic bioprosthesis.
[2018-06-14] MEDS: Magnesium Oxide 400 mg Tab UD PO SCH (09:36)
[2018-06-14] MEDS: Pantoprazole 40 mg EC Tab PO SCH (09:36)
[2018-06-14] MEDS: Levothyroxine 75 MCG TAB PO SCH (09:36)
--- NOTE | 2018-06-14 11:17 | PN ---
DATE: 06/14/2018 SUBJECTIVE: The patient is seen lying in bed on telemetry. He is comfortable and eating breakfast. He denies any dizziness or lightheadedness. He appears more appropriate this morning. His current medications include Flomax, Lexapro, Lipitor, Namenda, Norvasc 10 mg daily, Plavix 75 mg daily, Protonix and Synthroid. OBJECTIVE: GENERAL: He is an elderly man who appears comfortable. VITAL SIGNS: His blood pressure is 87/60 with pulse of 60 and sinus, respirations are 14. He is afebrile. HEENT: No JVD. CHEST: Few scattered rhonchi. HEART: Soft systolic murmur in left sternal border. ABDOMEN: Soft, nontender with normoactive bowel sounds. EXTREMITIES: No edema. DIAGNOSTIC DATA: His echocardiogram was reviewed and reveals a normally functioning aortic bioprosthesis with anteroseptal hypokinesis. His overall ejection fraction appears in normal range, however. White count 4.7, hemoglobin and hematocrit 10.9 and 31.6 with platelet count of 110,000, potassium 3.7, BUN and creatinine 35 and 1.5. IMPRESSION: 1. Recent fall at home, details unclear. Difficult to determine if he had true syncope, although according to the emergency room record, that appears less likely. 2. Junctional rhythm, now resolved with withholding beta-anju therapy. 3. Borderline low blood pressure, may be contributing to symptomatology. 4. Coronary artery disease and history of aortic stenosis, status post prior bypass surgery and aortic valve replacement, stable at present. 5. Moderately advanced dementia. RECOMMENDATIONS: Beta-anju will be withheld indefinitely. Norvasc will be held as well. If his blood pressure becomes elevated, smaller dose can be resumed. In general, conservative management appears most appropriate at this time. We will continue to follow and make further recommendations as appropriate. Donal Harvey MD
--- NOTE | 2018-06-14 17:47 | CP.PCM.CON ---
History of Present Illness - History of Present Illness History of Present Illness: MR Stapleton is an 83yr old male with pmh of dementia, tia, old stroke, location not known, who was brought in by family for increasing periods of confusion superimposed on moderately severe dementia. was diagnosed with dementia of alzheimers type many years ago and he is now taken care of by his nephew and brother in law. At baseline, he needs partial care, but at times does not recognize his family members. THere is no history of aphasia, focal weakness, loss of consciuosness. ROS: negative for 12 point system. PMH/PSH: as above. FH/SH: non contributory. no etoh, no tobacco. All: nkda. On exam: MMS: . memory: 0/3, at 1 minute. can name and repeat. cannot do calculations, draw clock or write sentence. motor: 5/5 sensory: not accurate. +2 dtr ul and ll bl. Toes downgoing no clonus. Past Patient History - Infectious Disease Hx of Infectious Diseases: None - Tetanus Immunizations Tetanus Immunization: Unknown - Past Social History Smoking Status: Unknown If Ever Smoked - CARDIAC Hx Cardiac Disorders: Yes Hx Congestive Heart Failure: No Hx Hypertension: Yes Hx Internal Defibrillator: No Hx Mitral Valve Prolapse: No Hx Pacemaker: No Hx Peripheral Edema: No - PULMONARY Hx Asthma: No Hx Bronchitis: No Hx Chronic Obstructive Pulmonary Disease (COPD): No Hx Emphysema: No - NEUROLOGICAL HX Cerebrovascular Accident: Yes (TIA) - RENAL Hx Chronic Kidney Disease: Yes Hx Dialysis: No Hx Kidney Stones: Yes Hx Neurogenic Bladder: No Hx Pyelonephritis: No Hx Renal (Kidney) Cancer: Yes - ENDOCRINE/METABOLIC Hx Endocrine Disorders: Yes Hx Hyperthyroidism: No Hx Hypothyroidism: Yes - HEMATOLOGICAL/ONCOLOGICAL Hx Anemia: No Hx Cancer: Yes (prostate) Hx Hepatitis A: No Hx Hepatitis B: No Hx Hepatitis C: No - INTEGUMENTARY Hx Dermatological Problems: No Hx Basil Cell: No Hx Eczema: No Hx Melanoma: No Hx Psoriasis: No Hx Squamous Cell: No - MUSCULOSKELETAL/RHEUMATOLOGICAL Hx Musculoskeletal Disorders: Yes Hx Arthritis: Yes Hx Falls: Yes (06-13-18) - GASTROINTESTINAL Hx Gastroesophageal Reflux: Yes - GENITOURINARY/GYNECOLOGICAL Hx Genitourinary Disorders: No Hx Hematuria: No Hx Incontinence: No Hx Prostate Problems: No Hx Sexually Transmitted Disorders: No - PSYCHIATRIC Hx Depression: No Hx Emotional Abuse: No Hx Physical Abuse: No Hx Substance Use: No - SURGICAL HISTORY Hx Surgeries: Yes (OPEN HEART? HEAD STERNOTOMY SCAR/WIRES IN PLACE.CARD CATH.) Hx Cardiac Catheterization: Yes Hx Coronary Stent: No Hx Open Heart Surgery: Yes Hx Orthopedic Surgery: Yes (left knee) - ANESTHESIA Hx Anesthesia: No Hx Anesthesia Reactions: No Hx Malignant Hyperthermia: No Meds Allergies/Adverse Reactions: Allergies Allergy/AdvReac Type Severity Reaction Status Date / Time No Known Allergies Allergy Verified 06/13/18 12:08 - Medications Medications: Current Medications Amlodipine Besylate (Norvasc) 10 mg PO DAILY [facility] Last Admin: 06/13/18 11:27 Dose: 10 mg Atorvastatin Calcium (Lipitor) 40 mg PO DIN [facility] Last Admin: 06/13/18 17:11 Dose: 40 mg Clopidogrel Bisulfate (Plavix) 75 mg PO DAILY [facility] Last Admin: 06/14/18 09:36 Dose: 75 mg Escitalopram Oxalate (Lexapro) 5 mg PO DAILY [facility] Last Admin: 06/14/18 09:36 Dose: 5 mg Levothyroxine Sodium (Synthroid) 75 mcg PO DAILY [facility] Last Admin: 06/14/18 09:36 Dose: 75 mcg Magnesium Oxide (Mag-Ox) 400 mg PO DAILY [facility] Last Admin: 06/14/18 09:36 Dose: 400 mg Memantine (Namenda) 10 mg PO DAILY [facility] Last Admin: 06/14/18 09:36 Dose: 10 mg Pantoprazole Sodium (Protonix Ec Tab) 40 mg PO DAILY [facility] Last Admin: 06/14/18 09:36 Dose: 40 mg Tamsulosin HCl (Flomax) 0.4 mg PO [facility] Last Admin: 06/13/18 22:01 Dose: 0.4 mg Results - Vital Signs Recent Vital Signs: Last Vital Signs Temp 98 F 06/14/18 12:00 Pulse 57 L 06/14/18 12:00 Resp 18 06/14/18 12:00 BP 127/62 06/14/18 12:00 Pulse Ox 97 06/14/18 06:00 - Labs Result Diagrams: 06/14/18 05:20 06/14/18 05:20 Labs: Laboratory Results - last 24 hr 06/14/18 06/14/18 05:20 05:20 WBC 4.7 D RBC 3.36 L Hgb 10.9 L Hct 31.6 L MCV 94.0 MCH 32.4 MCHC 34.5 RDW 13.0 Plt Count 110 L MPV 9.9 Sodium 138 Potassium 3.7 Chloride 104 Carbon Dioxide 25 Anion Gap 13 BUN 35 H Creatinine 1.5 Est GFR ( Amer) 54 Est GFR (Non-Af Amer) 44 Random Glucose 95 Calcium 8.9 Assessment & Plan - Assessment and Plan (Free Text) Assessment: 83 yr old male with moderately severe dementia, who is here for evluation of confusional spell. I believe that this is just progression of his dementia, and not a seizure or stroke. Plan; 1. Start aricept 2. No further neurological intervention at this time. Thank you for consulting neurology Dr. Lance Otero MD
[2018-06-14] MEDS ORDERED: Sodium Chloride 0.9% 250 ML IV SCH (19:00)
[2018-06-15] MEDS: Magnesium Oxide 400 mg Tab UD PO SCH (09:46)
[2018-06-15] MEDS: Pantoprazole 40 mg EC Tab PO SCH (09:46)
[2018-06-15] MEDS: Levothyroxine 75 MCG TAB PO SCH (09:47)
[2018-06-15 10:19] LABS: BASO # 0.01 K/mm3 (0.0-2.0); BASO % 0.2 % (0.0-3.0); EOS # 0.2 (0.0-0.7); EOS % 3.6 % (1.5-5.0); GRAN # 2.69 (1.4-6.5); GRAN % 53.4 % (50.0-68.0); HEMOGLOBIN 10.5 g/dL (14.0-18.0); LYMPH # 1.8 (1.2-3.4); LYMPH % 35.4 % (22.0-35.0); MEAN CELL VOLUME 94.2 fl (80.0-105.0); MEAN CORPUSCULAR HEMOGLOBIN 31.8 pg (25.0-35.0); MEAN CORPUSCULAR HGB CONC 33.8 g/dl (31.0-37.0); MEAN PLATELET VOLUME 8.9 fl (7.0-11.0); MONO # 0.4 (0.1-0.6); MONO % 7.4 % (1.0-6.0); RBC 3.3 10^6/uL (3.5-6.1); RED CELL DISTRIBUTION WIDTH 12.9 % (11.5-14.5)
[2018-06-15 10:23] LABS: ALB/GLOB RATIO 1.5 (1.1-1.8); ALBUMIN 3.9 g/dL (3.0-4.8); CALCIUM 9.4 mg/dL (8.4-10.5)
[2018-06-15] MEDS ORDERED: Sodium Chloride 0.9% 100 ML IV SCH (13:15)
[2018-06-15] MEDS: Sodium Chloride 0.9% 1,000 ML IV SCH (13:27)
[2018-06-15] MEDS ORDERED: Sodium Chloride 0.9% 250 ML IV STA (15:35)
--- NOTE | 2018-06-15 20:01 | CP.PCM.PN ---
<Florin Fine - Last Filed: 06/15/18 20:19> Subjective - Date & Time of Evaluation Date of Evaluation: 06/15/18 Time of Evaluation: 07:00 - Subjective Subjective: Pt seen and examined. Only able to answer some questions appropriately. Objective - Vital Signs/Intake and Output Vital Signs (last 24 hours): Temp Pulse Resp BP Pulse Ox 98.6 F 60 18 133/72 95 06/15/18 17:35 06/15/18 18:00 06/15/18 17:35 06/15/18 17:35 06/15/18 09:51 Intake and Output: 06/15/18 06/16/18 18:59 06:59 Intake Total 1270 Output Total 100 Balance 1170 - Medications Medications: Current Medications Amlodipine Besylate (Norvasc) 10 mg PO DAILY [facility] Last Admin: 06/13/18 11:27 Dose: 10 mg Atorvastatin Calcium (Lipitor) 40 mg PO DIN [facility] Last Admin: 06/15/18 17:14 Dose: 40 mg Clopidogrel Bisulfate (Plavix) 75 mg PO DAILY [facility] Last Admin: 06/15/18 09:47 Dose: 75 mg Escitalopram Oxalate (Lexapro) 5 mg PO DAILY [facility] Last Admin: 06/15/18 09:46 Dose: 5 mg Sodium Chloride (Sodium Chloride 0.9%) 1,000 mls @ 75 mls/hr IV .[id number] [facility] Last Admin: 06/15/18 13:27 Dose: 75 mls/hr Levothyroxine Sodium (Synthroid) 75 mcg PO DAILY [facility] Last Admin: 06/15/18 09:47 Dose: 75 mcg Magnesium Oxide (Mag-Ox) 400 mg PO DAILY [facility] Last Admin: 06/15/18 09:46 Dose: 400 mg Memantine (Namenda) 10 mg PO DAILY [facility] Last Admin: 06/15/18 09:47 Dose: 10 mg Pantoprazole Sodium (Protonix Ec Tab) 40 mg PO DAILY [facility] Last Admin: 06/15/18 09:46 Dose: 40 mg Tamsulosin HCl (Flomax) 0.4 mg PO HS [facility] Last Admin: 06/15/18 00:06 Dose: 0.4 mg - Labs Labs: 06/15/18 10:00 06/15/18 10:00 PT 11.2 SECONDS (9.4-12.5) 06/12/18 20:03 INR 0.98 06/12/18 20:03 APTT 20.9 Seconds (25.1-36.5) L 06/12/18 20:03 - Constitutional Appears: No Acute Distress - Head Exam Head Exam: ATRAUMATIC - ENT Exam ENT Exam: Mucous Membranes Moist - Respiratory Exam Respiratory Exam: Clear to Ausculation Bilateral, NORMAL BREATHING PATTERN. absent: Wheezes, Respiratory Distress - Cardiovascular Exam Cardiovascular Exam: REGULAR RHYTHM, +S1, +S2 - GI/Abdominal Exam GI & Abdominal Exam: Soft, Normal Bowel Sounds. absent: Tenderness - Neurological Exam Neurological Exam: Awake - Skin Skin Exam: Dry, Normal Color, Warm Assessment and Plan - Assessment and Plan (Free Text) Assessment: Pt is an 83 year old male with PMH of alzheimer's dementia, TIA, CVA who presents to the ED with complaints of period of increased confusion and fall. Plan: AMS - Head CT: no acute findings - ECHO: 52%, normal chamber size, overall LV systolic function, normally functioning aortic bioprosthesis - hold metoprolol, and norvasc - high fall risk, fall precautions - cardio recommends conservative management - neuro: no further neurological intervention at this time - social media manager consulted - pt moved from tele to remote tele History of CVA - continue plavix - continue home atorvastatin Orthostatic Hypotension - positive again today, bolus 250ml/hr - start maintainence fluids NS 75ml/hr - continue to monitor, will bolus again if needed Alzheimers - continue memantine 10mg PO daily HTN - holding amlodipine, metoprolol at this time Depression - escitalopram HLD - lipitor Hypothyroidism - synthroid Ppx - Protonix Pt seen, examined, assessment, plan discussed with Dr James. Florin Fine PGY1 Internal Medicine Resident <Kareem James - Last Filed: 06/16/18 06:44> Objective - Vital Signs/Intake and Output Vital Signs (last 24 hours): Temp Pulse Resp BP Pulse Ox 98.6 F 61 18 143/73 97 06/16/18 06:00 06/16/18 06:00 06/16/18 06:00 06/16/18 06:00 06/16/18 06:00 Intake and Output: 06/15/18 06/16/18 18:59 06:59 Intake Total 1270 240 Output Total 100 225 Balance 1170 15 - Medications Medications: Current Medications Amlodipine Besylate (Norvasc) 10 mg PO DAILY [facility] Last Admin: 06/13/18 11:27 Dose: 10 mg Atorvastatin Calcium (Lipitor) 40 mg PO DIN [facility] Last Admin: 06/15/18 17:14 Dose: 40 mg Clopidogrel Bisulfate (Plavix) 75 mg PO DAILY [facility] Last Admin: 06/15/18 09:47 Dose: 75 mg Escitalopram Oxalate (Lexapro) 5 mg PO DAILY [facility] Last Admin: 06/15/18 09:46 Dose: 5 mg Sodium Chloride (Sodium Chloride 0.9%) 1,000 mls @ 75 mls/hr IV .[id number] [facility] Last Admin: 06/15/18 13:27 Dose: 75 mls/hr Levothyroxine Sodium (Synthroid) 75 mcg PO DAILY [facility] Last Admin: 06/15/18 09:47 Dose: 75 mcg Magnesium Oxide (Mag-Ox) 400 mg PO DAILY [facility] Last Admin: 06/15/18 09:46 Dose: 400 mg Memantine (Namenda) 10 mg PO DAILY [facility] Last Admin: 06/15/18 09:47 Dose: 10 mg Pantoprazole Sodium (Protonix Ec Tab) 40 mg PO DAILY [facility] Last Admin: 06/15/18 09:46 Dose: 40 mg Tamsulosin HCl (Flomax) 0.4 mg PO HS [facility] Last Admin: 06/15/18 22:32 Dose: 0.4 mg - Labs Labs: 06/16/18 05:20 06/15/18 10:00 PT 11.2 SECONDS (9.4-12.5) 06/12/18 20:03 INR 0.98 06/12/18 20:03 APTT 20.9 Seconds (25.1-36.5) L 06/12/18 20:03 Attending/Attestation - Attestation I have personally seen and examined this patient.: Yes I have fully participated in the care of the patient.: Yes I have reviewed all pertinent clinical information, including history, physical exam and plan: Yes Notes (Text): 06/15/18 83 year old male with past medical history of dementia, TIA/CVA, depression, and hypothyroidism who presented s/p fall at home and increased confusion per family. He was found to have low normal blood pressure, bradycardia and + orthostatics. Metoprolol and norvasc are held. Fluid bolus given. Will repeat orthostatics in AM. Cardiology evaluation was appreciated; recommended conservative management. Neurology evaluation was appreciated; no further workup ordered. PT evaluation was appreciated; recommended [facility]. D/c planning to [facility] possibly this weekend after 3 inpatient midnight stays. Kareem James MD Hospitalist.
[2018-06-16 06:14] VITALS: O2SAT 97
[2018-06-16 06:30] LABS: BASO # 0.01 K/mm3 (0.0-2.0); BASO % 0.2 % (0.0-3.0); EOS # 0.2 (0.0-0.7); EOS % 3.7 % (1.5-5.0); GRAN # 3.08 (1.4-6.5); GRAN % 59.8 % (50.0-68.0); HEMOGLOBIN 10.8 g/dL (14.0-18.0); LYMPH # 1.5 (1.2-3.4); LYMPH % 28.3 % (22.0-35.0); MEAN CELL VOLUME 94.9 fl (80.0-105.0); MEAN CORPUSCULAR HEMOGLOBIN 32.3 pg (25.0-35.0); MEAN CORPUSCULAR HGB CONC 34.1 g/dl (31.0-37.0); MEAN PLATELET VOLUME 10.2 fl (7.0-11.0); MONO # 0.4 (0.1-0.6); RBC 3.34 10^6/uL (3.5-6.1); WHITE BLOOD COUNT 5.2 10^3/ul (4.5-11.0)
[2018-06-16 06:43] LABS: ALB/GLOB RATIO 1.5 (1.1-1.8); ALBUMIN 3.5 g/dL (3.0-4.8); CALCIUM 9.2 mg/dL (8.4-10.5)
[2018-06-16] MEDS: Magnesium Oxide 400 mg Tab UD PO SCH (10:56)
[2018-06-16] MEDS: Pantoprazole 40 mg EC Tab PO SCH (10:56)
[2018-06-16] MEDS: Levothyroxine 75 MCG TAB PO SCH (10:56)
[2018-06-16] MEDS: Sodium Chloride 0.9% 1,000 ML IV SCH (13:00)
--- NOTE | 2018-06-16 20:21 | CP.PCM.PN ---
<Florin Fine - Last Filed: 06/16/18 21:58> Subjective - Date & Time of Evaluation Date of Evaluation: 06/16/18 Time of Evaluation: 06:00 - Subjective Subjective: Pt seen and examined this morning. Pt pleasantly confused. No new complaints. Denies chest pain, SOB, palpitations. Objective - Vital Signs/Intake and Output Vital Signs (last 24 hours): Temp Pulse Resp BP Pulse Ox 98.7 F 64 18 148/90 97 06/16/18 17:53 06/16/18 18:00 06/16/18 17:53 06/16/18 17:53 06/16/18 06:00 Intake and Output: 06/16/18 06/17/18 18:59 06:59 Intake Total 720 Output Total 250 Balance 470 - Medications Medications: Current Medications Amlodipine Besylate (Norvasc) 10 mg PO DAILY [facility] Last Admin: 06/13/18 11:27 Dose: 10 mg Atorvastatin Calcium (Lipitor) 40 mg PO DIN [facility] Last Admin: 06/16/18 17:41 Dose: 40 mg Clopidogrel Bisulfate (Plavix) 75 mg PO DAILY [facility] Last Admin: 06/16/18 10:56 Dose: 75 mg Escitalopram Oxalate (Lexapro) 5 mg PO DAILY [facility] Last Admin: 06/16/18 10:56 Dose: 5 mg Sodium Chloride (Sodium Chloride 0.9%) 1,000 mls @ 75 mls/hr IV .[id number] [facility] Last Admin: 06/16/18 13:00 Dose: 75 mls/hr Levothyroxine Sodium (Synthroid) 75 mcg PO DAILY [facility] Last Admin: 06/16/18 10:56 Dose: 75 mcg Magnesium Oxide (Mag-Ox) 400 mg PO DAILY [facility] Last Admin: 06/16/18 10:56 Dose: 400 mg Memantine (Namenda) 10 mg PO DAILY [facility] Last Admin: 06/16/18 10:56 Dose: 10 mg Pantoprazole Sodium (Protonix Ec Tab) 40 mg PO DAILY [facility] Last Admin: 06/16/18 10:56 Dose: 40 mg Tamsulosin HCl (Flomax) 0.4 mg PO HS [facility] Last Admin: 06/15/18 22:32 Dose: 0.4 mg - Labs Labs: 06/16/18 05:20 06/16/18 05:20 PT 11.2 SECONDS (9.4-12.5) 06/12/18 20:03 INR 0.98 06/12/18 20:03 APTT 20.9 Seconds (25.1-36.5) L 06/12/18 20:03 - Constitutional Appears: No Acute Distress - Head Exam Head Exam: ATRAUMATIC - ENT Exam ENT Exam: Mucous Membranes Moist - Respiratory Exam Respiratory Exam: Clear to Ausculation Bilateral, NORMAL BREATHING PATTERN. absent: Accessory Muscle Use, Wheezes, Respiratory Distress - Cardiovascular Exam Cardiovascular Exam: REGULAR RHYTHM, +S1, +S2 - GI/Abdominal Exam GI & Abdominal Exam: Normal Bowel Sounds - Extremities Exam Extremities Exam: absent: Calf Tenderness, Tenderness - Neurological Exam Neurological Exam: Awake - Skin Skin Exam: Dry, Normal Color, Warm Assessment and Plan - Assessment and Plan (Free Text) Assessment: Pt is an 83 year old male with PMH of alzheimer's dementia, TIA, CVA who presents to the ED with complaints of period of increased confusion and fall. Plan: AMS - Head CT: no acute findings - ECHO: 52%, normal chamber size, overall LV systolic function, normally functioning aortic bioprosthesis - cardio recommends conservative management - neuro: no further neurological intervention at this time - Remote tele - fall precautions Orthostatic Hypotension - maintainence fluids NS 75ml/hr - continue to monitor, will bolus again if needed - BP lying 125/70, sitting 112/65, standing 65/41 History of CVA - continue plavix, continue home atorvastatin Alzheimers - continue memantine 10mg PO daily HTN - hold amlodipine - hold metoprolol HLD - lipitor Depression - escitalopram Hypothyroidism - synthroid Ppx - Protonix Pt seen, examined, assessment, plan discussed with Dr James. Florin Fine PGY1 Internal Medicine Resident <Kareem James - Last Filed: 06/17/18 06:48> Objective - Vital Signs/Intake and Output Vital Signs (last 24 hours): Temp Pulse Resp BP Pulse Ox 98.7 F 64 18 148/90 97 06/16/18 17:53 06/16/18 18:00 06/16/18 17:53 06/16/18 17:53 06/16/18 06:00 Intake and Output: 06/16/18 06/17/18 18:59 06:59 Intake Total 720 400 Output Total 250 1000 Balance 470 -600 - Medications Medications: Current Medications Amlodipine Besylate (Norvasc) 10 mg PO DAILY [facility] Last Admin: 06/13/18 11:27 Dose: 10 mg Atorvastatin Calcium (Lipitor) 40 mg PO DIN [facility] Last Admin: 06/16/18 17:41 Dose: 40 mg Clopidogrel Bisulfate (Plavix) 75 mg PO DAILY [facility] Last Admin: 06/16/18 10:56 Dose: 75 mg Escitalopram Oxalate (Lexapro) 5 mg PO DAILY [facility] Last Admin: 06/16/18 10:56 Dose: 5 mg Sodium Chloride (Sodium Chloride 0.9%) 1,000 mls @ 100 mls/hr IV .Q10H [facility] Levothyroxine Sodium (Synthroid) 75 mcg PO DAILY [facility] Last Admin: 06/16/18 10:56 Dose: 75 mcg Magnesium Oxide (Mag-Ox) 400 mg PO DAILY [facility] Last Admin: 06/16/18 10:56 Dose: 400 mg Memantine (Namenda) 10 mg PO DAILY [facility] Last Admin: 06/16/18 10:56 Dose: 10 mg Pantoprazole Sodium (Protonix Ec Tab) 40 mg PO DAILY [facility] Last Admin: 06/16/18 10:56 Dose: 40 mg Tamsulosin HCl (Flomax) 0.4 mg PO HS [facility] Last Admin: 06/15/18 22:32 Dose: 0.4 mg - Labs Labs: 06/16/18 05:20 06/16/18 05:20 PT 11.2 SECONDS (9.4-12.5) 06/12/18 20:03 INR 0.98 06/12/18 20:03 APTT 20.9 Seconds (25.1-36.5) L 06/12/18 20:03 Attending/Attestation - Attestation I have personally seen and examined this patient.: Yes I have fully participated in the care of the patient.: Yes I have reviewed all pertinent clinical information, including history, physical exam and plan: Yes Notes (Text): 06/16/18 83 year old male with past medical history of dementia, TIA/CVA, depression, and hypothyroidism who presented s/p fall at home and increased confusion per family. He was found to have low normal blood pressure, bradycardia and + orthostatics. Metoprolol and norvasc are held. Flomax held as well. Patient is on iv fluids. Repeat orthostatics today still positive. IVF were increased. Not a candidate for midodrine due to BPH. Case discussed with Dr. Devi who will follow patient tomorrow. Will repeat orthostatics in AM. Patient was also seen by neurology and PT; recommended [facility] possibly tomorrow if stable. Kareem James MD Hospitalist.
[2018-06-17 07:19] LABS: BASO # 0.01 K/mm3 (0.0-2.0); BASO % 0.2 % (0.0-3.0); EOS # 0.2 (0.0-0.7); EOS % 4.1 % (1.5-5.0); GRAN # 3.25 (1.4-6.5); GRAN % 61.3 % (50.0-68.0); HEMOGLOBIN 10.6 g/dL (14.0-18.0); LYMPH # 1.3 (1.2-3.4); MEAN CELL VOLUME 95.5 fl (80.0-105.0); MEAN CORPUSCULAR HEMOGLOBIN 32.1 pg (25.0-35.0); MEAN CORPUSCULAR HGB CONC 33.7 g/dl (31.0-37.0); MEAN PLATELET VOLUME 10.4 fl (7.0-11.0); MONO # 0.5 (0.1-0.6); MONO % 9.4 % (1.0-6.0); RBC 3.3 10^6/uL (3.5-6.1); RED CELL DISTRIBUTION WIDTH 13.1 % (11.5-14.5); WHITE BLOOD COUNT 5.3 10^3/ul (4.5-11.0)
[2018-06-17 07:42] LABS: ALB/GLOB RATIO 1.4 (1.1-1.8); ALBUMIN 3.7 g/dL (3.0-4.8); ALT/SGPT 36 U/L (7-56); AST/SGOT 39 U/L (17-59); BLOOD UREA NITROGEN 19 mg/dL (7-21); CALCIUM 9.2 mg/dL (8.4-10.5); GFR NON-AFRICAN AMERICAN 52
--- NOTE | 2018-06-17 08:36 | CP.PCM.PN ---
Subjective - Date & Time of Evaluation Date of Evaluation: 06/17/18 Time of Evaluation: 07:00 - Subjective Subjective: Stable on 2R. Found to have severe OH. No further falls or syncope. V/S noted. RSR/SB Postural V/S noted. Sys. BP down to 65 upon standing. PE: Lungs: clear Cor.: S1S2 Abd.: soft Ext.: no edema Neuor.: dementia I/O = 1720/1250 Labs: H/H = 10.6/31, Pl Ct = 113,000, K+= 3.5 Echo: Nl LV EF with A-S HK, Nl AVR. See report. Objective - Vital Signs/Intake and Output Vital Signs (last 24 hours): Temp Pulse Resp BP Pulse Ox 98.2 F 67 16 151/63 H 97 06/17/18 06:00 06/17/18 06:00 06/17/18 06:00 06/17/18 06:00 06/16/18 06:00 Intake and Output: 06/17/18 06/17/18 06:59 18:59 Intake Total 1000 Output Total 1000 Balance 0 - Medications Medications: Current Medications Amlodipine Besylate (Norvasc) 10 mg PO DAILY [facility] Last Admin: 06/13/18 11:27 Dose: 10 mg Atorvastatin Calcium (Lipitor) 40 mg PO DIN [facility] Last Admin: 06/16/18 17:41 Dose: 40 mg Clopidogrel Bisulfate (Plavix) 75 mg PO DAILY [facility] Last Admin: 06/16/18 10:56 Dose: 75 mg Escitalopram Oxalate (Lexapro) 5 mg PO DAILY [facility] Last Admin: 06/16/18 10:56 Dose: 5 mg Sodium Chloride (Sodium Chloride 0.9%) 1,000 mls @ 100 mls/hr IV .Q10H [facility] Levothyroxine Sodium (Synthroid) 75 mcg PO DAILY [facility] Last Admin: 06/16/18 10:56 Dose: 75 mcg Magnesium Oxide (Mag-Ox) 400 mg PO DAILY [facility] Last Admin: 06/16/18 10:56 Dose: 400 mg Memantine (Namenda) 10 mg PO DAILY [facility] Last Admin: 06/16/18 10:56 Dose: 10 mg Pantoprazole Sodium (Protonix Ec Tab) 40 mg PO DAILY [facility] Last Admin: 06/16/18 10:56 Dose: 40 mg Tamsulosin HCl (Flomax) 0.4 mg PO HS [facility] Last Admin: 06/15/18 22:32 Dose: 0.4 mg - Labs Labs: 06/17/18 06:00 06/17/18 06:00 PT 11.2 SECONDS (9.4-12.5) 06/12/18 20:03 INR 0.98 06/12/18 20:03 APTT 20.9 Seconds (25.1-36.5) L 06/12/18 20:03 Assessment and Plan - Assessment and Plan (Free Text) Assessment: Falls OH Dementia, severe Remote AVR/CABG for /CAD Junctional rhythm CVA HBP Hypothyroidism Plan: Hold BP meds. Accept higher resting BPs. Note Aricept can cause bradycardia. Consider Florinef. Consider high salt diet. Consider compression hose. Consider Renal/Hypertension Consultation. High Fall Risk. Bed to chair. Assisted ambulation only. As per Neuro and Medical Team.
[2018-06-17] MEDS: Sodium Chloride 0.9% 1,000 ML IV SCH ×4 (08:49→08:53)
[2018-06-17] MEDS ORDERED: Potassium Chloride 40 mEq/30 ml LIQ UD PO ONE (09:53)
[2018-06-17] MEDS: Magnesium Oxide 400 mg Tab UD PO SCH (10:30)
[2018-06-17] MEDS: Levothyroxine 75 MCG TAB PO SCH (10:30)
[2018-06-17] MEDS: Pantoprazole 40 mg EC Tab PO SCH (10:30)
[2018-06-17 12:17] VITALS: BP 138/76; PULSE 70; RESP 19; TEMP 98.1
--- NOTE | 2018-06-18 16:43 | CP.PCM.DIS ---
Provider - Provider Date of Admission: 06/14/18 14:03 Attending physician: Kareem James MD Primary care physician: Samuel Chau MD Consults: Neuro: Dr. Otero Cardio: Dr. Harvey Time Spent in preparation of Discharge (in minutes): 51 Diagnosis - Discharge Diagnosis (1) Orthostatic hypotension Status: Acute (2) Near syncope Status: Acute Hospital Course - Lab Results Lab Results: Most Recent Lab Values WBC 5.3 10^3/ul (4.5-11.0) 06/17/18 06:00 RBC 3.30 10^6/uL (3.5-6.1) L 06/17/18 06:00 Hgb 10.6 g/dL (14.0-18.0) L 06/17/18 06:00 Hct 31.5 % (42.0-52.0) L 06/17/18 06:00 MCV 95.5 fl (80.0-105.0) 06/17/18 06:00 MCH 32.1 pg (25.0-35.0) 06/17/18 06:00 MCHC 33.7 g/dl (31.0-37.0) 06/17/18 06:00 RDW 13.1 % (11.5-14.5) 06/17/18 06:00 Plt Count 113 10^3/uL (120.0-450.0) L 06/17/18 06:00 MPV 10.4 fl (7.0-11.0) 06/17/18 06:00 Gran % 61.3 % (50.0-68.0) 06/17/18 06:00 Lymph % (Auto) 25.0 % (22.0-35.0) 06/17/18 06:00 Chester % (Auto) 9.4 % (1.0-6.0) H 06/17/18 06:00 Eos % (Auto) 4.1 % (1.5-5.0) 06/17/18 06:00 Baso % (Auto) 0.2 % (0.0-3.0) 06/17/18 06:00 Gran # 3.25 (1.4-6.5) 06/17/18 06:00 Lymph # (Auto) 1.3 (1.2-3.4) 06/17/18 06:00 Chester # (Auto) 0.5 (0.1-0.6) 06/17/18 06:00 Eos # (Auto) 0.2 (0.0-0.7) 06/17/18 06:00 Baso # (Auto) 0.01 K/mm3 (0.0-2.0) 06/17/18 06:00 PT 11.2 SECONDS (9.4-12.5) 06/12/18 20:03 INR 0.98 06/12/18 20:03 APTT 20.9 Seconds (25.1-36.5) L 06/12/18 20:03 Sodium 143 mmol/L (132-148) 06/17/18 06:00 Potassium 3.5 mmol/L (3.6-5.0) L 06/17/18 06:00 Chloride 109 mmol/L (98-107) H 06/17/18 06:00 Carbon Dioxide 26 mmol/L (21-33) 06/17/18 06:00 Anion Gap 11 (10-20) 06/17/18 06:00 BUN 19 mg/dL (7-21) 06/17/18 06:00 Creatinine 1.3 mg/dl (0.8-1.5) 06/17/18 06:00 Est GFR ( Amer) > 60 06/17/18 06:00 Est GFR (Non-Af Amer) 52 06/17/18 06:00 Random Glucose 98 mg/dL (70-110) 06/17/18 06:00 Calcium 9.2 mg/dL (8.4-10.5) 06/17/18 06:00 Total Bilirubin 0.8 mg/dL (0.2-1.3) 06/17/18 06:00 AST 39 U/L (17-59) 06/17/18 06:00 ALT 36 U/L (7-56) 06/17/18 06:00 Alkaline Phosphatase 78 U/L (38-126) 06/17/18 06:00 Lactate Dehydrogenase 535 U/L (333-699) 06/12/18 20:03 Total Creatine Kinase 49 U/L (35-230) 06/12/18 20:03 Troponin I < 0.01 ng/mL 06/12/18 20:03 Total Protein 6.3 g/dL (5.8-8.3) 06/17/18 06:00 Albumin 3.7 g/dL (3.0-4.8) 06/17/18 06:00 Globulin 2.6 gm/dL 06/17/18 06:00 Albumin/Globulin Ratio 1.4 (1.1-1.8) 06/17/18 06:00 Triglycerides 127 mg/dL (35-160) 06/13/18 05:30 Cholesterol 138 mg/dL (130-200) 06/13/18 05:30 LDL Cholesterol Direct 53 mg/dL (0-129) 06/13/18 05:30 HDL Cholesterol 47 mg/dL (29-60) 06/13/18 05:30 Thyroxine (T4) 9.9 ug/dL (5.5-11.0) 06/13/18 08:30 TSH 3rd Generation 1.04 mIU/mL (0.46-4.68) 06/12/18 20:03 Urine Color Yellow (YELLOW) 06/13/18 02:05 Urine Appearance Clear (CLEAR) 06/13/18 02:05 Urine pH 8.0 (4.7-8.0) 06/13/18 02:05 Ur Specific Webb 1.015 (1.005-1.035) 06/13/18 02:05 Urine Protein Trace mg/dL (<30 mg/dL) H 06/13/18 02:05 Urine Glucose (UA) Negative mg/dL (NEGATIVE) 06/13/18 02:05 Urine Ketones 15 mg/dL (NEGATIVE) H 06/13/18 02:05 Urine Blood Negative (NEGATIVE) 06/13/18 02:05 Urine Nitrate Negative (NEGATIVE) 06/13/18 02:05 Urine Bilirubin Negative (NEGATIVE) 06/13/18 02:05 Urine Urobilinogen 0.2 E.U./dL (<1 E.U./dL) 06/13/18 02:05 Ur Leukocyte Esterase Negative [place]/uL (NEGATIVE) 06/13/18 02:05 Urine RBC 0 - 2 /hpf (0-2) 06/13/18 02:05 Urine WBC 0 - 2 /hpf (0-6) 06/13/18 02:05 Ur Epithelial Cells 0 - 2 /hpf (0-5) 06/13/18 02:05 Hyaline Casts 0 - 2 /hpf 06/13/18 02:05 - Hospital Course Hospital Course: 83 year old male with past medical history significant for dementia, TIA/CVA, depression, and hypothyroidism who presented s/p fall at home and increased confusion per family. He was found to have low normal blood pressure, bradycardia and positive orthostatic vital signs. IVF was started and HTN drugs/ Flomax were held. An echocardiogram and CT head were negative for any acute pathology. A repeat orthostatic vital signs test was positive. Cardiology and Neurology were consulted. Cardiology recommended conservative management but noted patient had BPH and was not a candidate for milrinone. Neurology recommended conservative management as well. Second repeat orthostatic vital signs were found to be negative. PT was discharged to [facility], per PT recommendations. Patient was discharged to [facility] on 06/17/18 with instructions as written below. - Date & Time of H&P Date of H&P: 06/13/18 Time of H&P: 02:36 Discharge Exam - Head Exam Head Exam: ATRAUMATIC, NORMOCEPHALIC - Eye Exam Eye Exam: EOMI, Normal appearance Pupil Exam: PERRL - ENT Exam ENT Exam: Mucous Membranes Moist - Neck Exam Neck exam: Full Rom - Respiratory Exam Respiratory Exam: Clear to PA & Lateral, NORMAL BREATHING PATTERN, UNREMARKABLE - Cardiovascular Exam Cardiovascular Exam: REGULAR RHYTHM - GI/Abdominal Exam GI & Abdominal Exam: Normal Bowel Sounds, Unremarkable - Extremities Exam Extremities exam: normal inspection - Neurological Exam Neurological exam: Alert, Oriented x3 - Psychiatric Exam Psychiatric exam: Normal Affect, Normal Mood - Skin Skin Exam: Dry, Intact, Normal Color, Warm Discharge Plan - Follow Up Plan Condition: STABLE Disposition: Trans to Other Acute Care Hosp Instructions: Altered Mental Status (DC), Orthostatic Hypotension (DC), Syncope (Fainting) (DC), How to Put On and Take Off Compression Stockings, Altered Mental Status (GEN) Additional Instructions: Please continue taking all medications as prescribed during your admission while in [facility] with the exception of Flomax, Norvasc and Florinef. Please do not take these medications while at [facility]. We are recommending that you hold the medication Flomax until you can follow up with Urology after discharge from [facility]. We are also recommending that you hold the medication Norvasc until you can follow up with your primary care doctor. These medications can lower your blood pressure, which was a medical ailment addressed during this admission. Lower blood pressure may lead to dizziness and falls. You were diagnosed with Orthostatic Hypotension during this admission. More information has been provided on this diagnosis in the attached paperwork. While this significantly improved during your admission, we still recommend that you use thigh high compression stockings whenever possible and remove any restrictions on sodium in your diet. Please follow up with your primary care doctor within one week of discharge from [facility] Please follow up with your Urologist within one week of discharge from [facility] Please take all medications as prescribed Referrals: Samuel Chau MD [Primary Care Provider] -
== END 2018-06-17 13:26 | DRG 312 ==
LOC: ED 19:24 → ERH 06-13 00:02 → 2RNO 06-13 16:02 → OBSVTOIN 06-14 14:03
PROVIDERS: ADMIT Internal Medicine; ATTEND Internal Medicine
DX: I95.1 Orthostatic hypotension (principal); R00.1 Bradycardia, unspecified; G30.9 Alzheimer's disease, unspecified; T44.7X1A Poisoning by beta-adrenoreceptor antagonists, accidental (unintentional), initial encounter; F02.80 Dementia in other diseases classified elsewhere, unspecified severity, without behavioral disturbance, psychotic disturbance, mood disturbance, and anxiety; E03.9 Hypothyroidism, unspecified; K21.9 Gastro-esophageal reflux disease without esophagitis; Z86.73 Personal history of transient ischemic attack (TIA), and cerebral infarction without residual deficits; W18.30XA Fall on same level, unspecified, initial encounter; I25.10 Atherosclerotic heart disease of native coronary artery without angina pectoris; I35.0 Nonrheumatic aortic (valve) stenosis; Z95.2 Presence of prosthetic heart valve; I12.9 Hypertensive chronic kidney disease with stage 1 through stage 4 chronic kidney disease, or unspecified chronic kidney disease; N18.9 Chronic kidney disease, unspecified; N40.0 Benign prostatic hyperplasia without lower urinary tract symptoms; Y92.009 Unspecified place in unspecified non-institutional (private) residence as the place of occurrence of the external cause; Y93.01 Activity, walking, marching and hiking; Z79.02 Long term (current) use of antithrombotics/antiplatelets; Z79.890 Hormone replacement therapy; Z79.899 Other long term (current) drug therapy; Z85.528 Personal history of other malignant neoplasm of kidney; Z87.442 Personal history of urinary calculi; Z95.1 Presence of aortocoronary bypass graft